=== PATIENT | female | born 1970 | race American Indian/Alaskan Native ===

== ENCOUNTER 2019-07-10 23:56 | Emergency (ER) | payer SELFPAY ==
[2019-07-11 00:31] VITALS: BP 141/58
--- NOTE | 2019-07-11 01:09 | XRay Report ---
Right wrist-4 views INDICATION: right wrist pain. COMPARISON: None. IMPRESSION: No acute osseous or soft tissue abnormality. No significant DJD. Signer Name: Gee Camarillo MD Signed: 07/11/2019 1:05 AM Workstation Name: [id number]
--- NOTE | 2019-07-11 01:25 | Emergency Department Report ---
Upper Extremity - HPI Chief Complaint: Extremity Injury, Upper Stated Complaint: WRIST PAIN Time Seen by Provider: 07/11/19 00:39 Other History: Patient is a 49-year-old female presents to the emergency room with complaints of right wrist pain for 2 months. She denies any fall or injury. She has not seen anyone for her discomfort. The patient denies any numbness or weakness. The patient states the pain is worse at night. She states that she does a lot of writing. The patient states she has been taking ibuprofen with some relief. She denies any past medical history or allergies to medications. ED Review of Systems ROS: Stated complaint: WRIST PAIN Other details as noted in HPI Comment: All other systems reviewed and negative ED Past Medical Hx - Past Medical History Previous Medical History?: No - Surgical History Past Surgical History?: Yes Additional Surgical History: X 2 - Social History Smoking Status: Never Smoker Substance Use Type: None - Medications Home Medications: Home Medications Medication Instructions Recorded Confirmed Last Taken Type Diclofenac Sodium [Diclofenac 100 mg PO DAILY PRN #14 tab.er.24h 07/11/19 Unknown Rx Sodium ER] Upper Extremity Exam - Exam General: Vital signs noted. No distress. Alert and acting appropriately. Arm Exam: No Arm/Humerus Tenderness, No Arm Deformity Elbow: Yes Normal Range of Motion in Elbow, No Elbow Tenderness, No Elbow Deformity Forearm: Yes Pain with Supination (in the right medial wrist), No Forearm Tenderness, No Forearm Deformity, No Pain with Pronation Wrist: Yes Normal ROM in Wrist, No Wrist Tenderness (mild of the right medial wrist), No Wrist Deformity, No Snuffbox Tenderness, No Pain with Axial Thumb Compression Hand: Yes Normal ROM in Digit(s), No Hand Tenderness, No Hand Deformity, No Digit Tenderness, No Digit(s) Deformity, No Tendon Dysfunction CMS Exam: Yes Normal Distal Pulses, Yes Normal Capillary Refill, Yes Normal Distal Sensation, No Broken Skin ED Course Vital Signs 07/11/19 00:26 Temperature 98 F Pulse Rate 89 Respiratory 16 Rate Blood Pressure 141/58 O2 Sat by Pulse 100 Oximetry ED Medical Decision Making - Radiology Data Radiology results: report reviewed Fluoro Time In Minutes: Right wrist-4 views INDICATION: right wrist pain. COMPARISON: None. IMPRESSION: No acute osseous or soft tissue abnormality. No significant DJD. Signer Name: Gee Camarillo MD Signed: 07/11/2019 1:05 AM Workstation Name: [id number] Transcribed By: LISSY Dictated By: Gee Camarillo MD Electronically Authenticated By: Gee Camarillo MD Signed Date/Time: 07/11/19 010 - Medical Decision Making Patient is a 49-year-old female presents to the emergency room with complaints of right wrist pain for 2 months. She denies any fall or injury. She has not seen anyone for her discomfort. The patient denies any numbness or weakness. The patient states the pain is worse at night. She states that she does a lot of writing. The patient states she has been taking ibuprofen with some relief. She denies any past medical history or allergies to medications. on exam: mild TTP of the right medial wrist, mild discomfort in the right wrist with supination, 2+ distal pulses, sensation intact, no snuffbox tenderness, no edema, no deformity. XR of the right wrist No acute osseous or soft tissue abnormality. No significant DJD. pt given a wrist splint as needed for wrist discomfort. given a prescription for diclofenac. advised pt to please take as prescribed as needed. May wear wrist splint as needed for discomfort. Do not sleep in wrist splint. Follow-up with an orthopedic doctor in the next 2-3 days. Turn to the emergency room for any new or worsening symptoms. - Differential Diagnosis strain, sprain, fx, dislocation, carpal tunnel, arthritis Critical care attestation.: If time is entered above; I have spent that time in minutes in the direct care o f this critically ill patient, excluding procedure time. ED Disposition Clinical Impression: Right wrist pain Disposition: - TO HOME OR SELFCARE Is pt being admited?: No Does the pt Need Aspirin: No Condition: Stable Instructions: Arthralgia (ED) Additional Instructions: take as prescribed as needed. May wear wrist splint as needed for discomfort. Do not sleep in wrist splint. Follow-up with an orthopedic doctor in the next 2-3 days. Turn to the emergency room for any new or worsening symptoms. Prescriptions: Diclofenac Sodium [Diclofenac Sodium ER] 100 mg PO DAILY PRN #14 tab.er.24h PRN Reason: pain Referrals: PAULINE VALADEZ MD [Staff Physician] - 2-3 Days Time of Disposition: 01:25 Print Language: WELSH
== END 2019-07-11 02:05 | disposition home or self-care (01) ==
LOC: ED 23:56
DX: M25.531 Pain in right wrist (principal); Z88.8 Allergy status to other drugs, medicaments and biological substances